=== PATIENT | male | born 1945 | race Caucasian/White ===

== ENCOUNTER 2019-02-24 09:40 | Day surgery (SDC) | payer MEDICARE, BC ==
[2019-02-22 10:35] LABS: BASOPHILS 0.3 % (0-2); EOSINOPHILS 0.5 % (0-7); HEMATOCRIT 41.1 % (42.0-54.0); HEMOGLOBIN 14.6 g/dL (13.5-17.5); IMMATURE GRANULOCYTES 0.2 % (0-5); LYMPHOCYTES 31.3 % (15-50); MCH 30.4 pg (26.0-34.0); MCHC 35.5 g/dL (31.0-37.0); MCV 85.4 fL (80.0-100.0); MEAN PLATELET VOLUME 9.4 fL (7.4-10.4); MONOCYTES 8.9 % (2-11); NEUTROPHILS 58.8 % (40-80); PLATELET COUNT 110 10x3/uL (130-400); RBC 4.81 10x6/uL (4.20-6.10); RDW 13.3 % (11.5-14.5); WBC 6.4 10x3/uL (4.8-10.8)
[2019-02-22 10:57] LABS: APTT 27.3 SECONDS (22.8-39.4); INR 1.07 (0.85-1.17); PROTIME 13.4 SECONDS (11.6-15.0)
[~2019-02-24] VITALS: Ht 180.3 cm; Wt 104.3 kg
[~2019-02-24 09:40] MED LIST: ACCUPRIL40 MG PO; AMBIEN10 MG PO; ASCORBIC ACID500 MG PO; FISH OIL 1,0001 CA1 PO; FLOMAX0.4 MG PO; MULTI-DAY VITAM1 TAB PO; NORVASC5 MG PO; OMEPRAZOLE20 M1 PO; PROSCAR5 MG PO; ULTRAM50 MG PO; VITAMIN D31000 UNI2 PO; ZOCOR20 MG PO
[2019-02-24 11:52] VITALS: BP 143/72; Ht 180.3 cm; Wt 104.3 kg
[2019-02-24] MEDS ORDERED: HYDROCODON-ACE1 EA10 PO (13:51)
--- NOTE | 2019-02-24 16:12 | NUR ---
1515 IV DC'D. CATHETER INTACT. PRESSURE HELD UNTIL BLEEDING STOPPED. BANDAID APPLIED.
--- NOTE | 2019-02-28 08:25 | OP ---
PATIENT NAME: SHANNAN SHIN MEDICAL RECORD: [id number] :47 LOCATION:[facility] ADMISSION DATE: SURGEON: KYLE WALLIS MD DATE OF OPERATION: 02/24/2019 PREOPERATIVE DIAGNOSES: Rotator cuff tear of the shoulder with impingement syndrome. 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 PROCEDURES: 1. Open partial rotator cuff repair. 2. Open subacromial decompression. 3. Open tuberoplasty. SURGEON: Kyle Wallis MD ANESTHESIA: General. INTRAOPERATIVE COMPLICATIONS: Essentially none. SUMMARY OF PATHOLOGIC FINDINGS: The patient had greatly worsened his rotator cuff tear since the time of the MRI. After talking to his , it was apparent that the patient did massive amounts of work in preparation for resting. He had hurt himself, but did not think it made worse. However, at the time of surgery, the rotator cuff tear was essentially supraspinatus, infraspinatus, and most of the teres minor. Mobilization of such resulted in some rotator cuff repair; however, there is clearly continually a deficit and as such, I proceeded to a tuberoplasty to see if we could lessen his pain with abduction. OPERATIVE SUMMARY IN DETAIL: After obtaining the appropriate preoperative orthopedic surgery consent as well as anesthetic consultation, evaluation, and clearance, the patient was brought to the operating room and placed on the operating table in supine position. After general laryngeal mask airway was administered, the patient was placed in a left lateral decubitus position. All pressure points were well padded to include down leg peroneal pad as well as axillary roll. The patient was held firmly to the operating table using the vacuum pack suction system. Right upper extremity and shoulder were then prepped and draped in routine sterile fashion. Arm was held in the Arthrex traction boom in 30 degrees of forward flexion, 30 degrees of abduction with 10 pounds of traction laterally. Arthroscopy was established in the glenohumeral joint from the posterior portal. Anterior portal was established in the anterior safe interval. Diagnostic arthroscopy did reveal the patient to have massive rotator cuff tearing. The biceps tendon was still in place in overall good continuity and seemed to be secondary to pressure of the humeral head. It was not violated. At this point, attention was made to proceed with open surgery. Anterolateral incision was created across the anterior aspect of the acromion out to the anterior and median raphae of the deltoid. This was then dissected cleanly and periosteal cuff was left. The anterior aspect of the acromion was changed to a type 1 acromion. Serial and sequential mobilization of the rotator cuff was attempted and reapproximation portions of the supraspinatus tendon back to the tuberosity in transosseous fashion were unsuccessful. It was therefore gently reapproximated [id number] and decision was made to abandon attempts at rotator cuff tear due to the overall massive OPERATIVE REPORT [id number] SHANNAN SHIN nature of it. Tuberoplasty was performed to create a smooth articulating with abduction. The wound was then copiously irrigated and closed with the deltoid, periosteal fascia to the acromion in a [id number] imbricated style suture. The deep deltoid fascia was closed with #2 Ethibond followed by #1 Vicryl, 2-0 Vicryl and skin julissa. Sterile dressings were applied. The patient was awakened and taken to recovery room in stable condition. All final needle and sponge counts were correct. TRANSINT:[id number] Voice Confirmation ID: [id number] DOCUMENT ID: [id number] BIMAL OTOOLE, KYLE TRENT at 0825 CC: [id number] DICTATION DATE: 02/25/19912 CHANNEL REBUILDER: 02/25/19 1040 [facility] 02/24/19 [facility] [address] [place] [address]
== END 2019-02-24 15:58 | disposition home or self-care (01) ==
LOC: D.OPS 09:40 → D.PAN 12:00 → D.OPS 15:58
PROVIDERS: Anesthesiology; ATTEND Orthopaedic Surgery
DX: M75.111 Incomplete rotator cuff tear or rupture of right shoulder, not specified as traumatic (principal); M75.41 Impingement syndrome of right shoulder; Z01.812 Encounter for preprocedural laboratory examination

== ENCOUNTER → 2020-07-12 10:49 | Outpatient (CLI) | payer MEDICARE, BC ==
[2019-02-24 11:52] VITALS: BMI 32.2
[~2020-07-12 10:49] MED LIST changes: +HYDROCODON-ACE1 EA10 PO
== END | disposition home or self-care (01) ==
LOC: D.LAB 10:49
PROVIDERS: ATTEND Dermatology MOHS-Micrographic Surgery
DX: L40.0 Psoriasis vulgaris (principal); M12.9 Arthropathy, unspecified